=== PATIENT | female | born 1945 | race Two or more races ===

== ENCOUNTER 2018-01-16 17:41 | Emergency (ER) | payer MEDICARE, OTHER ==
[~2018-01-16] VITALS: Ht 162.6 cm; Wt 59.0 kg
[~2018-01-16 17:41] MED LIST: ASPIRIN81 MG ORAL; LISINOPRIL20 MG ORAL; METFORMIN HCL500 M1 ORAL; NOVOLIN N100 UNIT/1 SUBQ; NOVOLIN R100 UNIT/1 SUBQ; OMEPRAZOLE20 M3 ORAL; XANAX0.25 MG ORAL
[2018-01-16 17:46] VITALS: BP 150/87
[2018-01-16 18:00] VITALS: BP 150/87
[2018-01-16] MEDS ORDERED: VALACYCLOVIR500 MG ORAL (18:15)
[2018-01-16] MEDS ORDERED: Tetanus/Diptheria/Pertussis Vaccine 0.5ml Syr IM ONE (18:15)
--- NOTE | 2018-01-16 18:15 | Emergency Room Report ---
History of Present Illness General Chief Complaint: Skin Rash/Abscess Source: Patient Present Illness HPI 72-year-old female patient presents to ER complaining of rash on left upper leg for the past 3 days. States believes it is "shingles". Denies hx of shingles. Reports rash on left upper leg that is painful, describes pain as burning. Denies history of HIV or cancer. Denies fever, chest pain, shortness of breath, vomiting. Denies other acute symptoms. patient unsure of tetanus vaccination status reports history of diabetes, states well-controlled. Denies eye pain or rash on face. Denies ear pain. Allergies: Coded Allergies: No Known Allergies (Unverified , 12/09/12) Patient History Past Medical History: see triage record Last Menstrual Period: NA Reviewed Nursing Documentation: PMH: Agreed; PSxH: Agreed Nursing Documentation-PMH Past Medical History: No History, Except For Hx Cardiac Problems: No Hx Hypertension: Yes Hx Diabetes: Yes Hx Cancer: No Hx Gastrointestinal Problems: Yes Hx Neurological Problems: No Review of Systems All Other Systems: negative except mentioned in HPI Physical Exam Vital Signs Date Time Temp Pulse Resp B/P (MAP) Pulse Ox O2 Delivery O2 Flow Rate FiO2 01/16/18 17:46 98.4 88 16 150/87 96 Room Air 98.4 Sp02 EP Interpretation: reviewed, normal General Appearance: well appearing, no apparent distress, alert, GCS 15, non- toxic Head: normocephalic, atraumatic Eyes: bilateral eye normal inspection, bilateral eye PERRL ENT: hearing grossly normal, normal pharynx, no angioedema, normal voice, uvula midline, moist mucus membranes Neck: full range of motion Respiratory: lungs clear, normal breath sounds, no rhonchi, no respiratory distress, no accessory muscle use, no wheezing, speaking full sentences Musculoskeletal: back normal, digits/nails normal, gait/station normal, normal range of motion, non-tender Psychiatric: mood/affect normal Skin: rash - Left upper le 2-3 cm erythematous eruptiosn of grouped vesicles on erythematous base, no edema, no TTP, no weeping lesions, no drainage Medical Decision Making PA Attestation Dr. Boone is my supervising Physician whom patient management has been discussed with. Diagnostic Impression: Primary Impression: Shingles ER Course Pt. presents to the ED c/o rash. Ddx considered but are not limited to atopic dermatitis, shingles, contact dermatitis, molluscum contagiosum. Vital signs: are WNL, pt. is afebrile ER COURSE On physical exam rash consistent with shingles, patient complaining of burning pain. Avoid contact with women and children to avoid transmission of shingles virus. Will treat with valacyclovir. Provided with TDAP in the ER. Followup with PCP, do not believe patient required further workup at this time, discuss need for outpatient workup at that time with primary care provider. Instructed to take Tylenol for pain. Patient seen and evaluated by Dr. Boone, agrees with assessment and treatment plan. DISCHARGE: Rx provided for Valacyclovir, 1gm TID x 7 days. At this time pt is stable for d/c to home. Patient is resting comfortably, in no acute distress, nontoxic appearing. Patient to take medications as instructed Will provide with patient care instructions and any necessary prescriptions. Care plan and follow-up instructions provided. Patient instructed to follow-up with primary care provider in 3 - 5 days. Patient questions asked and answered. Patient reports understanding and agreement to treatment plan. ER precautions given. Patient instructed to return to ER immediately for any new or worsening of symptoms including but not limited to increasing SOB, persistent fever, intractable vomiting, worsening of rash. - Please note that this Emergency Department Report was dictated using [employer] technology software, occasionally this can lead to erroneous entry secondary to interpretation by the dictation equipment. Last Vital Signs Date Time Temp Pulse Resp B/P (MAP) Pulse Ox O2 Delivery O2 Flow Rate FiO2 01/16/18 17:46 98.4 88 16 150/87 96 Room Air 98.4 Disposition: HOME, SELF-CARE Condition: Stable Scripts Valacyclovir Hcl* (VALTREX*) 500 Mg Tablet 1000 MG ORAL TID for 7 Days, #42 TAB Prov: Navi Jennings 01/16/18 Patient Instructions: Shingles, [id number] Additional Instructions: Followup with primary care provider in 3 -5 days. Do not scratch or itch. Avoid contact with women and children. Take medications as directed. Patient questions asked and answered. ER precautions given, patient instructed to return to ER immediately for any new or worsening of symptoms. Navi Jennings Jan 16, 2018 18:15
== END 2018-01-16 18:30 | disposition home or self-care (01) ==
LOC: EMR 18:00
DX: B02.9 Zoster without complications (principal); E11.9 Type 2 diabetes mellitus without complications; I10 Essential (primary) hypertension; Z23 Encounter for immunization
CPT/HCPCS: 90471; 90715; 99283